=== PATIENT | female | born 1965 | race Caucasian/White ===

== ENCOUNTER 2022-08-24 20:43 | Emergency (ER) | payer OTHER, BC, SELFPAY ==
[2022-08-24] VITALS (8 sets, daily range): BP systolic 147–156; BP diastolic 75–95; PULSE 68–75; RESP 15–18; TEMP 36.4; O2SAT 97–100
--- NOTE | ~2022-08-24 | CT_ITS ---
Noncontrast CT scan of the cervical spine Technique: Multiple contiguous axial [address] images of the cervical spine were obtained and rec onstructed in 2D sagittal and coronal planes on the acquisition scanner. Dose reduction technique was used on this scan by utilizing automated exposure control, adjustment of the mA and/or kV according to patient size. Clinical History: Pain Findings: No fractures or dislocations. There is fusion of the left C2-C3 facet joint. There is mild reversal of the normal cervical lordosis. There is moderate degenerative disc narrowing at C5-C6 and C6-C7. Disc osteophyte complex is present at C5-C6 and C6-C7, with possible mild canal stenosis at t hese levels. There is some mild disc ossify complex present at C4-C5. No prevertebral soft tissue swe lling. Impression: No fracture or subluxation of the cervical spine. Degenerative change, as detailed above. Reviewed, dictated and finalized at [facility]. Impression: No fracture or subluxation of the cervical spine. Degenerative change, as detailed above.
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
[2022-08-25] VITALS (26 sets, daily range): BP systolic 139–157; BP diastolic 79–92; PULSE 61–78; RESP 10–22; O2SAT 95–100
--- NOTE | 2022-08-25 | ECG_ITS ---
Measurements Intervals [place] Rate: 68 P: 40 ME: 184 QRS: 2 QRSD: 89 T: 5 QT: 414 QTc: 441 Interpretive Statements SINUS RHYTHM CONSIDER INFERIOR INFARCT, AGE INDETERMINATE BASELINE ARTIFACT- I, II, III, AVR, AVL, AVF ABNORMAL ECG NO PREVIOUS ECG AVAILABLE FOR COMPARISON Electronically Signed On 08-25-2022 6:47:56 CDT by Walt Gamez D.O.
[2022-08-25 00:56] LABS: Estimated CRCL calculation 59 ml/min; Estimated Glomerular Filt Rate > 60
== END 2022-08-25 03:41 | disposition home or self-care (01) ==
PROVIDERS: Emergency Provider Physician Assistant; PCP Internal Medicine Geriatric Medicine
DX: M54.2 Cervicalgia (principal); R07.81 Pleurodynia; V43.52XA Car driver injured in collision with other type car in traffic accident, initial encounter
CPT/HCPCS: 71260; 72125; 74177; 93005; 96374; 99284; J0131; Q9967